=== PATIENT | female | born 2000 | race Caucasian/White ===

== ENCOUNTER 2024-05-15 16:17 | Emergency (ER) | payer SELFPAY ==
[~2024-05-15] VITALS: Ht 167.6 cm; Wt 85.0 kg
[2024-05-15 16:48] VITALS: O2SAT 100
[2024-05-15 18:10] LABS: CLARITY URINE CLOUDY (CLEAR); COLOR URINE YELLOW (YELLOW); GLUCOSE URINE NEGATIVE (NEGATIVE); KETONES URINE NEGATIVE (NEGATIVE); LEUKOCYTE ESTERASE URINE 3+ (NEGATIVE); NITRITE URINE NEGATIVE (NEGATIVE); OCCULT BLOOD URINE NEGATIVE (NEGATIVE); PROTEIN URINE NEGATIVE (NEGATIVE); SPECIFIC GRAVITY URINE 1.012 (1.005-1.030)
[2024-05-15 18:50] LABS: BACTERIA URINE TRACE; RBC URINE NONE SEEN /hpf (0-2); SQUAMOUS EPITHELIAL CELL URINE 1+ /lpf (RARE/1+)
[2024-05-15] MEDS: ACETAMINOPHEN 325MG TABLET PO NR (21:07)
[2024-05-15 23:28] LABS: BASOPHILS % 0.4 % (0.0-2.0); DIFFERENTIAL COMMENT 0; HEMATOCRIT. 34.6 % (36.0-48.0); HEMOGLOBIN. 11.1 g/dL (12.0-16.0); LYMPHOCYTES % 24.9 % (20.0-50.0); MEAN CORPUSCULAR HEMOGLOBIN 24.6 pg (28.0-32.0); MEAN CORPUSCULAR HGB CONC 32.2 g/dL (31.0-37.0); MEAN CORPUSCULAR VOLUME 76.6 fL (81.0-99.0); MEAN PLATELET VOLUME 8.6 fl (7.4-10.4); MONOCYTES % 7.9 % (2.0-8.0); NEUTROPHILS % 65.8 % (40.0-76.0); PLATELET 336 x1000/uL (130-400); RED BLOOD CELL COUNT 4.52 mill/uL (4.2-5.4); RED CELL DISTRIBUTION WIDTH 16.2 % (11.6-14.6)
[2024-05-15 23:36] LABS: CHLORIDE 104 mEq/L (98-107); POTASSIUM 3.7 mEq/L (3.5-5.1); PROTHROMBIN TIME 10.9 sec (9.6-11.0)
[2024-05-15 23:37] LABS: CARBON DIOXIDE 27 mEq/L (21-32); SODIUM 140 mEq/L (136-145)
[2024-05-15 23:42] LABS: CREATININE 0.7 mg/dL (0.6-1.0); GLUCOSE 104 mg/dL (70-105)
[2024-05-15 23:43] LABS: UREA NITROGEN BLOOD 9 mg/dL (9-23)
[2024-05-15 23:44] LABS: ALANINE AMINOTRANSFERASE < 7 IU/L (10-49); ALBUMIN 4.2 g/dL (3.2-4.8); ASPARTATE AMINOTRANSFERASE 13 IU/L (<34)
[2024-05-15 23:45] LABS: BILIRUBIN DIRECT 0.2 mg/dL (<=3.0); BILIRUBIN TOTAL 0.6 mg/dL (0.1-1.0); PROTEIN TOTAL 7.9 g/dL (6.0-8.3)
[2024-05-16 00:19] LABS: B-HCG QUANTITATIVE < 1 mIU/mL (<3)
[2024-05-16 00:32] LABS: HCG SCREEN NEGATIVE
[2024-05-16] MEDS ORDERED: SULF1TAB48 MT (00:47)
[2024-05-16 00:56] VITALS: BP 130/70; PULSE 60; RESP 18; TEMP 37; O2SAT 100
== END 2024-05-16 00:15 | disposition home or self-care (01) ==
LOC: ER 16:17
DX: N39.0 Urinary tract infection, site not specified (principal); J45.909 Unspecified asthma, uncomplicated; R93.89 Abnormal findings on diagnostic imaging of other specified body structures
CPT/HCPCS: 36415; 76830; 76856; 80048; 80076; 81003; 81025; 84702; 84703; 85025; 87077; 87186; 99284